=== PATIENT | male | born 1955 | race Caucasian/White ===

== ENCOUNTER 2017-02-24 14:58 | Emergency (ER) | payer BC, OTHER ==
[2017-02-24] MEDS ORDERED: Aspirin 81 MG Tab.Chew PO STA (15:22)
--- NOTE | 2017-02-24 15:28 | EDM.PDOC ---
ED HPI GENERAL MEDICAL PROBLEM - General Chief Complaint: Chest Pain Stated Complaint: CHEST PAIN Time Seen by Provider: 02/24/17 15:19 - History of Present Illness INITIAL COMMENTS - FREE TEXT/NARRATIVE: 62-year-old male presents emergency room with chest pain. Patient had significant chest discomfort on Tuesday this is over his left shoulder and radiated down to his left anterior chest. This pain was much better on Tuesday he was very active and didn't have any problems he's had intermittent twinging yesterday are usually triggered by change of position. The patient was seen by his chiropractor earlier today who recommended he come in for evaluation make sure his heart wasn't acting up. Patient has no prior history of cardiac problems he is taking atorvastatin for hyperlipidemia. The patient's mother had an MS at age 90 and his father of a malignancy. The patient does not currently smoke. The patient is not having active chest pain at this time. 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 [Unable to Verify Home Med List] 02/24/17 [History] ED ROS GENERAL - Review of Systems Review Of Systems: See Below Constitutional: Reports: No Symptoms HEENT: Reports: No Symptoms Respiratory: Reports: No Symptoms Cardiovascular: Reports: Chest Pain. Denies: Dyspnea on Exertion, Edema, Palpitations GI/Abdominal: Reports: No Symptoms : Reports: No Symptoms Musculoskeletal: Reports: Shoulder Pain, Muscle Pain Neurological: Reports: No Symptoms ED EXAM, GENERAL - Physical Exam Exam: See Below Exam Limited By: No Limitations General Appearance: Alert, No Apparent Distress Head: Atraumatic, Normocephalic Neck: Normal Inspection, Supple, Non-Tender, Full Range of Motion Respiratory/Chest: No Respiratory Distress, Lungs Clear, Normal Breath Sounds Cardiovascular: Regular Rate, Rhythm, No Edema, No Murmur GI/Abdominal: Normal Bowel Sounds, Soft, Non-Tender Back Exam: Normal Inspection. No: CVA Tenderness (L), CVA Tenderness (R) Extremities: Normal Inspection, No Pedal Edema EKG INTERPRETATION Rhythm: NSR [place]: Normal P-Wave: Present QRS: Normal ST-T: Other (Nonspecific nondiagnostic changes minimal ST elevation in lead III) QT: Normal Course - Vital Signs Last Recorded V/S: Last Vital Signs Temp 36.8 C 02/24/17 15:06 Pulse 71 02/24/17 15:06 Resp 10 L 02/24/17 15:06 BP 163/89 H 02/24/17 15:06 Pulse Ox 100 02/24/17 15:06 - Orders/Labs/Meds Orders: Active Orders 24 hr Category Date Time Status EKG Documentation Completion [RC] STAT Care 02/24/17 15:29 Active CBC WITH MANUAL DIFF [HEME] Stat Lab 02/24/17 15:10 Results Labs: Laboratory Tests 02/24/17 02/24/17 02/24/17 Range/Units 15:10 15:10 15:10 WBC 6.31 (4.23-9.07) K/mm3 RBC 5.42 (4.63-6.08) M/mm3 Hgb 15.6 (13.7-17.5) gm/L Hct 46.1 (40.1-51.0) % MCV 85.1 (79.0-92.2) fl MCH 28.8 (25.7-32.2) pg MCHC 33.8 (32.2-35.5) g/dl RDW Std Deviation 43.0 (35.1-43.9) fL Plt Count 348 H (163-337) K/mm3 MPV 9.7 (9.4-12.3) fl PT 10.7 (8.0-13.0) SECONDS INR 0.98 APTT 23 (22-36) SECONDS Sodium 143 (136-145) mEq/L Potassium 3.7 (3.5-5.1) mEq/L Chloride 105 (98-107) mEq/L Carbon Dioxide 28 (21-32) mEq/L Anion Gap 13.7 (5-15) BUN 17 (7-18) mg/dL Creatinine 1.1 (0.7-1.3) mg/dL Est Cr Clr Drug Dosing 67.84 mL/min Estimated GFR (MDRD) > 60 (>60) mL/min BUN/Creatinine Ratio 15.5 (14-18) Glucose 105 (80-115) mg/dL Calcium 9.9 (8.5-10.1) mg/dL Total Bilirubin 1.5 H (0.2-1.0) mg/dL AST 25 (15-37) U/L ALT 50 (16-63) U/L Alkaline Phosphatase 75 (46-116) U/L Troponin I < 0.017 (0.00-0.056) ng/mL Total Protein 7.9 (6.4-8.2) g/dl Albumin 4.0 (3.4-5.0) g/dl Globulin 3.9 gm/dL Albumin/Globulin Ratio 1.0 (1-2) Meds: Medications Discontinued Medications Generic Name Dose Route Start Last Admin Trade Name Freq PRN Reason Stop Dose Admin Aspirin 324 mg 02/24/17 15:22 02/24/17 15:26 Aspirin PO 02/24/17 15:23 324 mg ONETIME STA Administration - Re-Assessments/Exams Free Text/Narrative Re-Assessment/Exam: 02/24/17 16:22 Patient is done well here in the emergency room no return of his chest pain. Patient did get treated with some aspirin. His labs are negative at this point chest x-ray unrevealing EKG nondiagnostic patient agrees to an outpatient stress test. We discussed his heart score his heart score is 31 point for his hyperlipidemia one point for his age and 1 point for a moderately suspicious history. The patient would like to go home at this point after discussing the implications of the heart score and the 1.7% chance of major acute coronary event in the next 6 weeks. He agrees to follow-up for a stress test and follow- up in the clinic. Departure - Departure Time of Disposition: 16:27 Disposition: Home, Self-Care 01 Clinical Impression: Chest pain Referrals: James Celis MD [Primary Care Provider] - Forms: ED Department Discharge Additional Instructions: Return to emergency room with any questions problems or worsening symptoms. Return for your stress test as scheduled. Start baby aspirin daily. This is an 81 mg enteric-coated aspirin 1 daily. Follow-up with your regular physician 2 or 3 days after your stress test is done - My Orders Last 24 Hours: My Active Orders 02/24/17 15:10 CBC WITH MANUAL DIFF [HEME] Stat 02/24/17 15:29 EKG Documentation Completion [RC] STAT - Assessment/Plan Last 24 Hours: My Active Orders 02/24/17 15:10 CBC WITH MANUAL DIFF [HEME] Stat 02/24/17 15:29 EKG Documentation Completion [RC] STAT
--- NOTE | 2017-02-24 16:12 | CR ---
Chest: Portable view of the chest was obtained. Comparison: No previous study. Heart size is normal. Upper mediastinum is within normal limits. Lungs are clear. Bony structures are grossly intact. Impression: 1. Nothing acute is seen on portable chest x-ray. Diagnostic code #1
== END 2017-02-24 16:35 | disposition home or self-care (01) ==
LOC: JD.ED 14:58
DX: R07.9 Chest pain, unspecified (principal); E78.5 Hyperlipidemia, unspecified; Z88.0 Allergy status to penicillin
CPT/HCPCS: 36415; 71010; 80053; 84484; 85025; 85610; 85730; 93005; 99285; A9270; 93010

== ENCOUNTER 2018-09-26 20:23 | Observation (INO) | payer MEDICARE, MEDICAID ==
[2018-09-26] MEDS ORDERED: Sodium Chloride 0.9% 10 ML Syringe FLUSH PRN (20:51)
[2018-09-26] MEDS ORDERED: Lactated Ringers 1,000 ML IV SCH (21:00)
[2018-09-26] MEDS ORDERED: Iohexol 647 MG/ML 100 ML Bottle IVPUSH ONE (21:06)
--- NOTE | 2018-09-26 22:03 | EDM.PDOC ---
ED HPI GENERAL MEDICAL PROBLEM - General Chief Complaint: Upper Extremity Injury/Pain Stated Complaint: [facility] Time Seen by Provider: 09/26/18 20:28 Source of Information: Reports: Patient, EMS History Limitations: Reports: No Limitations - History of Present Illness INITIAL COMMENTS - FREE TEXT/NARRATIVE: The patient presents by [facility] for a horse accident. 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 He got him settled down and then he went down. He landed on his left side and hurt his left shoulder and upper chest. He may have been out for a short time. He has no headache now hor chest pain. He does have a deformity to the left clavicle and his upper lateral chest wall hurts. He says it hurts to take a deep breath. He has no abdominal pain, nausea, or vomiting. He has no pain in his hips, pelvis or legs. An IV was started in the ambulance and he was given fentanyl. Onset: Sudden Duration: Minutes: Location: Reports: Chest, Upper Extremity, Left (clavicle) Quality: Reports: Sharp Severity: Moderate Improves with: Reports: Immobilization Worsens with: Reports: Movement Context: Reports: Trauma (Horse fell over) Associated Symptoms: Reports: Chest Pain. 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 HELPER: Reports: Other (see below) Other Treatments STONEMASON HELPER: fentanyl Left Shoulder Pain Score (Numeric/FACES): 8 - Related Data Allergies Allergy/AdvReac Type Severity Reaction Status Date / Time Penicillins Allergy Syncope Verified 09/26/18 20:41 Past Medical History Cardiovascular History: Reports: High Cholesterol - Past Surgical History HEENT Surgical History: Reports: Tonsillectomy Other HEENT Surgeries/Procedures: nasal surgery Social & Family History - Tobacco Use Smoking Status *Q: Never Smoker - Caffeine Use Caffeine Use: Reports: Coffee - Recreational Drug Use Recreational Drug Use: No Review of Systems - Review of Systems Review Of Systems: See Below Constitutional: Reports: No Symptoms Eyes: Reports: No Symptoms Ears: Reports: No Symptoms Nose: Reports: No Symptoms Mouth/Throat: Reports: No Symptoms Respiratory: Reports: No Symptoms Cardiovascular: Reports: Chest Pain (Left upper) GI/Abdominal: Reports: No Symptoms Genitourinary: Reports: No Symptoms Musculoskeletal: Reports: Other (Left clavicle pain) ED EXAM, GENERAL - Physical Exam Exam: See Below Exam Limited By: No Limitations General Appearance: Alert, No Apparent Distress Ears: Normal External Exam Nose: Normal Inspection Head: Atraumatic, Normocephalic Neck: Normal Inspection, Supple, Non-Tender Respiratory/Chest: No Respiratory Distress, Lungs Clear, Normal Breath Sounds Cardiovascular: Regular Rate, Rhythm, No Edema, No Murmur GI/Abdominal: Soft, Non-Tender, No Organomegaly, No Mass Back Exam: Normal Inspection Extremities: Other (Pain upon palpation to the left mid clavicle with edema and a slight deformity) Course - Vital Signs Last Recorded V/S: Last Vital Signs Temp 97.7 F 09/26/18 20:29 Pulse 85 09/26/18 20:29 Resp 18 09/26/18 20:29 BP 131/77 09/26/18 20:29 Pulse Ox 92 L 09/26/18 20:29 - Orders/Labs/Meds Orders: Active Orders 24 hr Category Date Time Status Cardiac Monitoring [RC] . DIRECTED Care 09/26/18 20:51 Active Peripheral IV Care [RC] . DIRECTED Care 09/26/18 20:51 Active Cervical Spine wo Cont [CT] Stat Exams 09/26/18 20:52 Taken Chest w Cont [CT] Stat Exams 09/26/18 20:52 Taken Head wo Cont [CT] Stat Exams 09/26/18 20:51 Taken Lactated Ringers [Ringers, Lactated] 1,000 ml Med 09/26/18 21:00 Active IV ASDIRECTED Sodium Chloride 0.9% [Saline Flush] Med 09/26/18 20:51 Active 10 ml FLUSH ASDIRECTED PRN Peripheral IV Insertion Adult [OM.PC] Stat Oth 09/26/18 20:51 Ordered Medication Orders Lactated Ringer's (Ringers, Lactated) 1,000 mls @ 125 mls/hr IV ASDIRECTED LEO Last Admin: 09/26/18 21:01 Dose: 125 mls/hr Sodium Chloride (Saline Flush) 10 ml FLUSH ASDIRECTED PRN PRN Reason: Keep Vein Open Last Admin: 09/26/18 21:01 Dose: 10 ml Labs: Laboratory Tests 09/26/18 09/26/18 09/26/18 Range/Units 21:04 21:27 21:27 WBC 16.81 H (4.23-9.07) K/mm3 RBC 5.12 (4.63-6.08) M/mm3 Hgb 14.7 (13.7-17.5) gm/L Hct 44.4 (40.1-51.0) % MCV 86.7 (79.0-92.2) fl MCH 28.7 (25.7-32.2) pg MCHC 33.1 (32.2-35.5) g/dl RDW Std Deviation 43.3 (35.1-43.9) fL Plt Count 271 D (163-337) K/mm3 MPV 9.6 (9.4-12.3) fl Neut % (Auto) 82.7 H (34.0-67.9) % Lymph % (Auto) 8.7 L (21.8-53.1) % [place] % (Auto) 7.0 (5.3-12.2) % Eos % (Auto) 0.6 L (0.8-7.0) Baso % (Auto) 0.4 (0.1-1.2) % Neut # (Auto) 13.91 H (1.78-5.38) K/mm3 Lymph # (Auto) 1.47 (1.32-3.57) K/mm3 [place] # (Auto) 1.17 H (0.30-0.82) K/mm3 Eos # (Auto) 0.10 (0.04-0.54) K/mm3 Baso # (Auto) 0.06 (0.01-0.08) K/mm3 Manual Slide Review Normal smear Sodium 143 (136-145) mEq/L Potassium 4.3 (3.5-5.1) mEq/L Chloride 108 H (98-107) mEq/L Carbon Dioxide 26 (21-32) mEq/L Anion Gap 13.3 (5-15) BUN 25 H (7-18) mg/dL Creatinine 1.2 (0.7-1.3) mg/dL Est Cr Clr Drug Dosing 59.38 mL/min Estimated GFR (MDRD) > 60 (>60) mL/min BUN/Creatinine Ratio 20.8 H (14-18) Glucose 142 H (80-115) mg/dL Calcium 9.7 (8.5-10.1) mg/dL Total Bilirubin 1.2 H (0.2-1.0) mg/dL AST 34 (15-37) U/L ALT 50 (16-63) U/L Alkaline Phosphatase 66 (46-116) U/L Total Protein 7.4 (6.4-8.2) g/dl Albumin 3.9 (3.4-5.0) g/dl Globulin 3.5 gm/dL Albumin/Globulin Ratio 1.1 (1-2) Lipase 95 (73-393) U/L Urine Color Yellow (Yellow) Urine Appearance Clear (Clear) Urine pH 5.5 (5.0-8.0) Ur Specific [place] > or = 1.030 (1.005-1.030) Urine Protein 1+ H (Negative) Urine Glucose (UA) Negative (Negative) Urine Ketones Negative (Negative) Urine Occult Blood Trace-lysed H (Negative) Urine Nitrite Negative (Negative) Urine Bilirubin Negative (Negative) Urine Urobilinogen 0.2 (0.2-1.0) Ur Leukocyte Esterase Negative (Negative) Urine RBC 0-5 (0-5) /hpf Urine WBC 0-5 (0-5) /hpf Ur Epithelial Cells 0-5 (0-5) /hpf Urine Bacteria Few (FEW) /hpf Fine Granular Casts 0-5 (0-5) /lpf Urine Mucus Few (FEW) /hpf Meds: Medications Generic Name Dose Route Start Last Admin Trade Name Peeq PRN Reason Stop Dose Admin Lactated Ringer's 1,000 mls @ 125 mls/hr 09/26/18 21:00 09/26/18 21:01 Ringers, Lactated IV 125 mls/hr ASDIRECTED LEO Administration Sodium Chloride 10 ml 09/26/18 20:51 09/26/18 21:01 Saline Flush FLUSH 10 ml ASDIRECTED PRN Administration Keep Vein Open Discontinued Medications Generic Name Dose Route Start Last Admin Trade Name Freq PRN Reason Stop Dose Admin Hydromorphone HCl 0.5 mg 09/26/18 22:40 09/26/18 22:45 Dilaudid IVPUSH 09/26/18 22:41 0.5 mg ONETIME ONE Administration Iohexol 100 ml 09/26/18 21:06 09/26/18 22:07 Omnipaque-300 IVPUSH 09/26/18 21:07 100 ml ONETIME ONE Administration - Re-Assessments/Exams Free Text/Narrative Re-Assessment/Exam: 09/26/18 22:04 I ordered an IV saline lock, CT of his head, cervical spine and chest, and labs. 09/26/18 22:34 His WBC was elevated at 16.81. His CMP looks good. His UA shows no blood. The CT of his head shows nothing acute. The CT of his cervical spine shows no evidence of acute cervical injury. Nondisplaced fracture of the left posterior first rib. Mildly displaced fracture of the right posterior second rib. Nondisplaced fractures of the left T2 and T3 transverse processes. The CT of his chest shows a comminuted mid left clavicular fracture. Left 1st, 3rd, 4th, 5th and 6th rib fractures. Nondisplaced fracture of the body of the left scapula. Nondisplaced fractures of the left transverse process of T1 and T2. Scattered airspace opacities in both lower lobes dependently which could reflect atelectasis or aspiration. Subpleural soft tissue thickening adjacent to the left lateral rib fractures, which could reflect subchondral contusion versus trace hemothorax. He has more pain so I ordered dilaudid 0.5mg IV. 09/26/18 23:00 I feel he may need to be admitted. I called Dr Ortega and she agreed to the admission for observation. Departure - Departure Time of Disposition: 23:05 Disposition: Refer to Observation Condition: Fair Clinical Impression: Animal-rider injured by fall from or being thrown from horse in noncollision accident, initial encounter, Atelectasis of both lungs Concussion Qualifiers: Encounter type: initial encounter Loss of consciousness presence/duration: with LOC of 30 min or less Qualified Code(s): S06.0X1A - Concussion with loss of consciousness of 30 minutes or less, initial encounter Scapula fracture Qualifiers: Encounter type: initial encounter Scapula location: body Fracture type: closed Fracture alignment: nondisplaced Laterality: left Qualified Code(s): S42.115A - Nondisplaced fracture of body of scapula, left shoulder, initial encounter for closed fracture Clavicle fracture, shaft Qualifiers: Encounter type: initial encounter Fracture type: closed Fracture alignment: displaced Laterality: left Qualified Code(s): S42.022A - Displaced fracture of shaft of left clavicle, initial encounter for closed fracture Ribs, multiple fractures Qualifiers: Encounter type: initial encounter Fracture type: closed Laterality: left Qualified Code(s): S22.42XA - Multiple fractures of ribs, left side, initial encounter for closed fracture Chest wall contusion Qualifiers: Encounter type: initial encounter Laterality: left Qualified Code(s): S20.212A - Contusion of left front wall of thorax, initial encounter - Discharge Information Referrals: PCP,Not In Area [Primary Care Provider] - Forms: ED Department Discharge - My Orders Last 24 Hours: My Active Orders 09/26/18 20:51 Cardiac Monitoring [RC] . DIRECTED Peripheral IV Care [RC] . DIRECTED Head wo Cont [CT] Stat Sodium Chloride 0.9% [Saline Flush] 10 ml FLUSH ASDIRECTED PRN Peripheral IV Insertion Adult [OM.PC] Stat 09/26/18 20:52 Cervical Spine wo Cont [CT] Stat Chest w Cont [CT] Stat 09/26/18 21:00 Lactated Ringers [Ringers, Lactated] 1,000 ml IV ASDIRECTED - Assessment/Plan Last 24 Hours: My Active Orders 09/26/18 20:51 Cardiac Monitoring [RC] . DIRECTED Peripheral IV Care [RC] . DIRECTED Head wo Cont [CT] Stat Sodium Chloride 0.9% [Saline Flush] 10 ml FLUSH ASDIRECTED PRN Peripheral IV Insertion Adult [OM.PC] Stat 09/26/18 20:52 Cervical Spine wo Cont [CT] Stat Chest w Cont [CT] Stat 09/26/18 21:00 Lactated Ringers [Ringers, Lactated] 1,000 ml IV ASDIRECTED
[2018-09-26] MEDS ORDERED: HYDROmorphone 0.5 MG/0.5 ML Syringe IVPUSH ONE (22:40)
[2018-09-26] MEDS ORDERED: Ibuprofen 600 MG Tab PO PRN (23:54)
[2018-09-27] MEDS ORDERED: HYDROmorphone 0.5 MG/0.5 ML Syringe IVPUSH PRN (00:15)
[2018-09-27] MEDS ORDERED: Heparin Sodium 5,000 Units/ML Vial SUBCUT SCH ×2 (01:00→06:00)
[2018-09-27] MEDS ORDERED: Sodium Chloride 0.9% 10 ML Syringe FLUSH PRN (01:00)
[2018-09-27] MEDS: Acetaminophen/HYDROcodone 325-5 MG Tab PO PRN ×2 (04:00→11:27)
--- NOTE | 2018-09-27 05:45 | PCM.HP ---
H&P History of Present Illness - General Date of Service: 09/27/18 Admit Problem/Dx: Admission Diagnosis/Problem Admission Diagnosis/Problem Rib pain on left side Source of Information: Patient, Provider History Limitations: Reports: No Limitations - History of Present Illness Initial Comments - Free Text/Narative: 63 y/o male presents after falling on his horse yesterday. He reports blacking out for a short time, and then having pain in his chest with difficulty breathing. He was seen in the ED and evaluated with lab and CT tests. He was found to have multiple left rib fractures, left clavicular fracture, and left scapular fracture. He also sustained a fracture of the right second rib. He did not have any injury to the head or cervical spine. This morning he reports his pain is improved and minimal unless he tries to breath deeply or move. He also reports pain in the right thumb. He was ambulating and urinating this am, with report of clear yellow urine. Left Shoulder Pain Score (Numeric/FACES): 8 Bilateral Thoracic Pain Score (Numeric/FACES): 5 - Related Data Allergies/Adverse Reactions: Allergies Allergy/AdvReac Type Severity Reaction Status Date / Time Penicillins Allergy Syncope Verified 09/26/18 20:41 Home Medications: Home Meds atorvaSTATin [Lipitor] 10 mg PO BEDTIME 09/26/18 [History] Aspirin [[place] Aspirin EC] 81 mg PO DAILY 09/27/18 [History] Multivit-Min/FA/Lycopen/Lutein [Centrum Silver Men Tablet] PO DAILY 09/27/18 [ History] Ollie-3/DHA/Epa/Fish Oil [Fish Oil 1,000 mg Softgel] 720 mg PO DAILY 09/27/18 [ History] Past Medical History Cardiovascular History: Reports: High Cholesterol Gastrointestinal History: Reports: Hemorrhoids, PUD (gastric ulcer) Genitourinary History: Reports: None - Infectious Disease History Infectious Disease History: Reports: Chicken Pox, Shingles - Past Surgical History HEENT Surgical History: Reports: Tonsillectomy Other HEENT Surgeries/Procedures: nasal surgery Social & Family History - Family History Cardiac: Reports: Heart Failure Other Cardiac Family History: mother Neurological: Reports: CVA Other Neurological Family History: son had stroke at 20 yrs old Oncologic: Reports: Brain Other Oncologic Family History: father of brain tumor - Tobacco Use Smoking Status *Q: Never Smoker Second Hand Smoke Exposure: No - Caffeine Use Caffeine Use: Reports: Coffee, Soda, Tea - Recreational Drug Use Recreational Drug Use: No H&P Review of Systems - Review of Systems: Review Of Systems: See Below General: Reports: No Symptoms HEENT: Reports: Other (sneezing ) Pulmonary: Reports: Shortness of Breath Cardiovascular: Reports: No Symptoms Gastrointestinal: Reports: No Symptoms Genitourinary: Reports: No Symptoms Musculoskeletal: Reports: Shoulder Pain, Other (chest wall pain) Skin: Reports: No Symptoms Psychiatric: Reports: No Symptoms Neurological: Reports: No Symptoms Exam - Exam Exam: See Below - Vital Signs Vital Signs: Last Vital Signs Temp 37.3 C 09/26/18 23:15 Pulse 88 09/26/18 23:15 Resp 20 09/26/18 23:15 BP 104/67 09/26/18 23:15 Pulse Ox 95 09/26/18 23:15 Weight: 80.104 kg - Exam General: Alert, Oriented HEENT: Conjunctiva Clear, EOMI Neck: Supple Lungs: Clear to Auscultation, Normal Respiratory Effort Cardiovascular: Regular Rate, Regular Rhythm GI/Abdominal Exam: Soft, Non-Tender, No Distention, Pelvis Stable Back Exam: Normal Inspection. No: Vertebral Tenderness Extremities: Normal Inspection, No Pedal Edema, Other (right thumb without deformity) Peripheral Pulses: 2+: Dorsalis Pedis (L), Dorsalis Pedis (R) Skin: Warm, Dry, Intact Neurological: Cranial Nerves Intact Neuro Extensive - Mental Status: Alert, Oriented x3, Normal Mood/Affect - Patient Data Lab Results Last 24 hrs: Laboratory Results - last 24 hr 09/26/18 09/26/18 09/26/18 Range/Units 21:04 21:27 21:27 WBC 16.81 H (4.23-9.07) K/mm3 RBC 5.12 (4.63-6.08) M/mm3 Hgb 14.7 (13.7-17.5) gm/L Hct 44.4 (40.1-51.0) % MCV 86.7 (79.0-92.2) fl MCH 28.7 (25.7-32.2) pg MCHC 33.1 (32.2-35.5) g/dl RDW Std Deviation 43.3 (35.1-43.9) fL Plt Count 271 D (163-337) K/mm3 MPV 9.6 (9.4-12.3) fl Neut % (Auto) 82.7 H (34.0-67.9) % Lymph % (Auto) 8.7 L (21.8-53.1) % Jackson % (Auto) 7.0 (5.3-12.2) % Eos % (Auto) 0.6 L (0.8-7.0) Baso % (Auto) 0.4 (0.1-1.2) % Neut # (Auto) 13.91 H (1.78-5.38) K/mm3 Lymph # (Auto) 1.47 (1.32-3.57) K/mm3 Jackson # (Auto) 1.17 H (0.30-0.82) K/mm3 Eos # (Auto) 0.10 (0.04-0.54) K/mm3 Baso # (Auto) 0.06 (0.01-0.08) K/mm3 Manual Slide Review Normal smear Sodium 143 (136-145) mEq/L Potassium 4.3 (3.5-5.1) mEq/L Chloride 108 H (98-107) mEq/L Carbon Dioxide 26 (21-32) mEq/L Anion Gap 13.3 (5-15) BUN 25 H (7-18) mg/dL Creatinine 1.2 (0.7-1.3) mg/dL Est Cr Clr Drug Dosing 59.38 mL/min Estimated GFR (MDRD) > 60 (>60) mL/min BUN/Creatinine Ratio 20.8 H (14-18) Glucose 142 H (80-115) mg/dL Calcium 9.7 (8.5-10.1) mg/dL Total Bilirubin 1.2 H (0.2-1.0) mg/dL AST 34 (15-37) U/L ALT 50 (16-63) U/L Alkaline Phosphatase 66 (46-116) U/L Total Protein 7.4 (6.4-8.2) g/dl Albumin 3.9 (3.4-5.0) g/dl Globulin 3.5 gm/dL Albumin/Globulin Ratio 1.1 (1-2) Lipase 95 (73-393) U/L Urine Color Yellow (Yellow) Urine Appearance Clear (Clear) Urine pH 5.5 (5.0-8.0) Ur Specific [place] > or = 1.030 (1.005-1.030) Urine Protein 1+ H (Negative) Urine Glucose (UA) Negative (Negative) Urine Ketones Negative (Negative) Urine Occult Blood Trace-lysed H (Negative) Urine Nitrite Negative (Negative) Urine Bilirubin Negative (Negative) Urine Urobilinogen 0.2 (0.2-1.0) Ur Leukocyte Esterase Negative (Negative) Urine RBC 0-5 (0-5) /hpf Urine WBC 0-5 (0-5) /hpf Ur Epithelial Cells 0-5 (0-5) /hpf Urine Bacteria Few (FEW) /hpf Fine Granular Casts 0-5 (0-5) /lpf Urine Mucus Few (FEW) /hpf Result Diagrams: 09/26/18 21:27 09/26/18 21:27 *Q Meaningful Use (ADM) - VTE Risk Assess *Q Each Risk Factor Represents 1 Point: Other Risk Factor Total Score 1 Point Risk Factors: 1 Each Risk Factor Represents 2 Points: Age 60 - 74 Years Total Score 2 Point Risk Factors: 2 - Problem List (1) Animal-rider injured by fall from or being thrown from horse in noncollision accident, initial encounter SNOMED Code(s): 346260459, 653863335 ICD Code: V80.010A - ANIML-RIDR INJURED BY FALL FR HORSE IN NONCLSN ACC, INIT Status: Acute Current Visit: Yes (2) Clavicle fracture, shaft SNOMED Code(s): 05278692 ICD Code: S42.023A - DISP FX OF SHAFT OF UNSP CLAVICLE, INIT FOR CLOS FX Status: Acute Current Visit: Yes Qualifiers: Encounter type: initial encounter Fracture type: closed Fracture alignment: displaced Laterality: left Qualified Code(s): S42.022A - Displaced fracture of shaft of left clavicle, initial encounter for closed fracture (3) Ribs, multiple fractures SNOMED Code(s): 6204108 ICD Code: S22.49XA - MULTIPLE FRACTURES OF RIBS, UNSP SIDE, INIT FOR CLOS FX Status: Acute Current Visit: Yes Qualifiers: Encounter type: initial encounter Fracture type: closed Laterality: left Qualified Code(s): S22.42XA - Multiple fractures of ribs, left side, initial encounter for closed fracture (4) Scapula fracture SNOMED Code(s): 4851050 ICD Code: S42.109A - FRACTURE OF UNSP PART OF SCAPULA, UNSP SHOULDER, INIT Status: Acute Current Visit: Yes Qualifiers: Encounter type: initial encounter Scapula location: body Fracture type: closed Fracture alignment: nondisplaced Laterality: left Qualified Code(s) : S42.115A - Nondisplaced fracture of body of scapula, left shoulder, initial encounter for closed fracture Problem List Initiated/Reviewed/Updated: Yes Orders Last 24hrs: Active Orders 24 hr Category Date Time Status Patient Status [ADT] Routine ADT 09/26/18 23:04 Active Bedrest Bathroom Privileges [RC] ASDIRECTED Care 09/26/18 23:51 Active Cardiac Monitoring [RC] . DIRECTED Care 09/26/18 20:51 Active Incentive Spirometry [RT Incentive Spirometry] [RC] Care 09/26/18 23:53 Active Q2HWA Oxygen Therapy Adult [Oxygen Therapy] [RC] ASDIRECTED Care 09/26/18 23:51 Active Peripheral IV Care [RC] . DIRECTED Care 09/26/18 20:51 Active Regular Diet [DIET] Diet 09/27/18 Breakfast Active Cervical Spine wo Cont [CT] Stat Exams 09/26/18 20:52 Taken Chest 2V [CR] Routine Exams 09/27/18 05:40 Ordered Chest w Cont [CT] Stat Exams 09/26/18 20:52 Taken Head wo Cont [CT] Stat Exams 09/26/18 20:51 Taken CBC W/O DIFF,HEMOGRAM [HEME] MOTH@0700 Lab 09/28/18 07:00 Ordered CBC W/O DIFF,HEMOGRAM [HEME] MOTH@0700 Lab 10/02/18 07:00 Ordered CBC W/O DIFF,HEMOGRAM [HEME] MOTH@0700 Lab 10/05/18 07:00 Ordered CBC W/O DIFF,HEMOGRAM [HEME] MOTH@0700 Lab 10/09/18 07:00 Ordered CBC W/O DIFF,HEMOGRAM [HEME] MOTH@0700 Lab 10/12/18 07:00 Ordered CBC W/O DIFF,HEMOGRAM [HEME] MOTH@0700 Lab 10/16/18 07:00 Ordered URINALYSIS W/MICROSCOPIC [UA W/MICROSCOPIC] [URIN] Lab 09/27/18 05:41 Ordered Routine Acetaminophen/HYDROcodone [[place] 325-5 MG] Med 09/27/18 00:14 Active 2 tab PO Q6H PRN HYDROmorphone [Dilaudid] Med 09/27/18 00:15 Active 0.5 mg IVPUSH Q2H PRN Heparin Sodium Med 09/27/18 01:00 Ordered 5,000 units SUBCUT Q12H Ibuprofen [Motrin] Med 09/26/18 23:54 Active 600 mg PO Q6H PRN Lactated Ringers [Ringers, Lactated] 1,000 ml Med 09/26/18 21:00 Active IV ASDIRECTED Sodium Chloride 0.9% [Saline Flush] Med 09/26/18 20:51 Active 10 ml FLUSH ASDIRECTED PRN Sodium Chloride 0.9% [Saline Flush] Med 09/27/18 01:00 Ordered 10 ml FLUSH ASDIRECTED PRN Convert IV to Saline Lock [OM.PC] Routine Oth 09/27/18 01:00 Ordered Peripheral IV Insertion Adult [OM.PC] Stat Oth 09/26/18 20:51 Ordered Code Status [Resuscitation Status] Routine Resus Stat 09/26/18 23:49 Ordered Medication Orders Hydrocodone Bitart/Acetaminophen ([place] 325-5 Mg) 2 tab PO Q6H PRN PRN Reason: Pain (moderate 4-6) Heparin Sodium (Porcine) (Heparin Sodium) 5,000 units SUBCUT Q12H [place]O Hydromorphone HCl (Dilaudid) 0.5 mg IVPUSH Q2H PRN PRN Reason: Pain (severe 7-10) Last Admin: 09/27/18 00:49 Dose: 0.5 mg Lactated Ringer's (Ringers, Lactated) 1,000 mls @ 125 mls/hr IV ASDIRECTED LEO Last Admin: 09/26/18 21:01 Dose: 125 mls/hr Ibuprofen (Motrin) 600 mg PO Q6H PRN PRN Reason: Pain (mild 1-3) Sodium Chloride (Saline Flush) 10 ml FLUSH ASDIRECTED PRN PRN Reason: Keep Vein Open Last Admin: 09/26/18 21:01 Dose: 10 ml Sodium Chloride (Saline Flush) 10 ml FLUSH ASDIRECTED PRN PRN Reason: Keep Vein Open Assessment/Plan Comment:: 63 y/o gentleman with left scapular fracture, multiple left rib fractures, and left clavicular fracture with addition right rib fracture. - continue current pain regimen - IS with cough and deep breathing - regular diet - repeat CXR today to eval for lung contusion, hemothorax and or developing pneumothorax - repeat UA for trace blood seen at admission - Orthopedics consult for multiple fractures Possible discharge home today pending results Estefani Siddiqi MD General surgery
--- NOTE | 2018-09-27 07:15 | CT ---
CT cervical spine Technique: Multiple axial sections were obtained from above C1 inferiorly to the bottom of T2. Reconstructed sagittal and coronal images were reviewed. Comparison: No prior cervical spine imaging. Findings: Fracture is again noted within the left first rib. Nondisplaced fracture is seen within the left T2 spinous process. Slight anterior osteophytes are seen at C2-C3 and C4-C5. Vertebral body heights are maintained. No cervical spine fracture is seen. No bony central or bony neural foraminal stenosis is seen. Impression: 1. Fractures within the left first rib as well as a second transverse process. 2. Minimal degenerative change. 3. Nothing acute is seen within the cervical spine. Diagnostic code #3 I agree with preliminary report from [facility], finalized on 09/26/18, 11:13 PM Central Time
--- NOTE | 2018-09-27 08:11 | CT ---
Head CT Technique: Multiple axial sections through the brain were obtained. Intravenous contrast was not utilized. Comparison: No previous intracranial imaging is available. Findings: Ventricles along with basal cisterns and sulci over the convexities are within normal limits for the patient's age. No abnormal parenchymal densities are seen. No evidence of intracranial hemorrhage. No midline shift or mass effect is seen. Bone window settings were reviewed which shows no acute calvarial abnormality. Small radiopacities are seen anteriorly within the skin of the frontal scalp presumably due to overlying foreign bodies. Visualized sinuses are clear. Impression: 1. Small radiopacities within the frontal scalp presumably due to overlying foreign bodies. 2. No acute intracranial abnormality is seen. Diagnostic code #2 I agree with preliminary report from [facility], finalized on 09/26/18, 11:18 PM Central Time
--- NOTE | 2018-09-27 08:11 | CT ---
CT chest Technique: Multiple axial sections were obtained from above the lung apices inferiorly through the lung bases. Intravenous contrast was utilized. Comparison: Prior chest x-ray of 02/24/17. Findings: Mediastinum and hilar regions appear unremarkable. No pericardial thickening is seen. No axillary adenopathy is identified. Small cyst is noted within the right lobe of the liver measuring 7 mm. Cyst is noted within the upper left kidney measuring 5.4 cm. Increased density is noted within both lung bases and pleural thickening is seen within the left chest. Fracture is noted within the left first rib as well as comminuted fracture within the left clavicle. Fracture is noted within the left third rib as well as fourth and fifth ribs. Additional fracture is seen within the sixth rib. Minimal irregularity is seen within the right second rib which correlates to a definite fracture on subsequent chest x-ray performed one day later. No additional rib fractures are appreciated. Lateral view shows no compression deformities within the spine with slight endplate spurring being seen within the spine. Lateral reconstructed views of the sternum appear intact. Nondisplaced fractures are seen within the transverse process of T2 and T3 on the left side. Impression: 1. Rib fractures within the left first, third, fourth, fifth and sixth ribs. Adjacent pleural thickening is seen within the left chest adjacent to the rib fractures. Nondisplaced fractures within the left transverse process of T2 and T3. Right second rib fracture also noted. 2. Increased density within both lung bases. Differential includes aspiration as well as atelectasis or less likely pneumonia. 3. Other incidental findings. Diagnostic code #3 I agree with preliminary report from [facility], finalized on 09/26/18, 11:14 PM Central Time
--- NOTE | 2018-09-27 08:47 | CR ---
Left clavicle: Two views of the left clavicle were obtained. Mildly comminuted mid left clavicle fracture is seen. Major fragments show displacement by over a shaft width. Left-sided rib fractures are again seen. Impression: 1. Displacement left clavicle fracture as well as left sided rib fractures again being seen. Diagnostic code #3
--- NOTE | 2018-09-27 08:47 | CR ---
Chest: Two views of the chest were obtained. Comparison: Prior chest CT of 09/26/18. Multiple left-sided rib fractures are seen. Right second rib fracture is also noted. Left clavicle fracture is seen. Pleural thickening likely relating to the rib fractures are seen on the left side. Slight parenchymal density is seen within the left lung base most likely due to atelectasis. Heart size is normal. Mild tortuosity of the thoracic aorta is seen. Impression: 1. Bilateral rib fractures as noted above. Left clavicle fracture. 2. Pleural thickening along the left-sided rib fractures. 3. Mild left basilar atelectasis. Diagnostic code #3
[2018-09-27] MEDS ORDERED: Aspirin 81 MG Tab.EC PO SCH (09:00)
--- NOTE | 2018-09-27 11:21 | CONS ---
CONSULTING PHYSICIAN: Yovany Hebert MD DATE OF CONSULTATION: 09/27/2018 CHIEF COMPLAINT: Left shoulder pain. 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 The patient subsequently had a trauma called on him on the Emergency Department. He was found to have multiple rib fractures as well as left clavicle fracture and did have loss of consciousness and they did admit him overnight for observation as well as pain control. The patient, at this time, states he is doing well. He denies any previous pain or injury to the left upper extremity before this happened, and overall his rib fractures hurt this morning, but his left clavicle does not seem to be as bad. The patient denies any other injury at this time, and states that he otherwise is very active, but is very right-hand dominant. PHYSICAL EXAMINATION: GENERAL: Alert, in no acute distress. VITAL SIGNS: Stable, afebrile. EXTREMITIES: Examination of bilateral lower extremities. Pelvis is stable, anterior, posterior, and lateral compression. Bilateral lower extremities showed no step off. No tenderness to palpation in there. Neurovascular intact. Examination of left upper extremity, there is significant swelling noted over the left clavicle. There is no skin tenting. No blanching. He does have prominence noted to the midshaft clavicle. He is neurovascularly intact to axillary, radial, and ulnar median nerve distribution. He has no elbow tenderness. He is able to move his hand without difficulty. Right upper extremity has full range of motion. He is neurovascular intact. IMAGING DATA: Radiographs were reviewed showing a displaced left midshaft clavicle fracture with butterfly fragment. ASSESSMENT: Left midshaft clavicle fracture. PLAN: At this time, I did discuss with the patient and his significant other possible options for this, and at this time, we will plan on seeing the patient next week Tuesday. The patient will be in and on to sling as he feels like he needs it. He is to do no lifting, carrying, pushing, or pulling or shoulder height above type motion with left shoulder until that time. The patient will follow up next Tuesday with repeat radiographs in clinic, and at that time, we can decide whether he would like to pursue surgical intervention for the fracture. MMODAL /[id number]
--- NOTE | 2018-09-27 18:13 | PCM.DCSUM1 ---
Discharge Summary - Hospital Course Free Text/Narrative:: The patient was admitted after falling on his horse and sustaining multiple rib fractures and a clavicular fracture. He was kept overnight for pain control. Repeat CXR did not reveal any developing lung contusion or pneumothorax. He was seen by orthopedic surgery and arranged for follow up. He was discharged home. Diagnosis: Stroke: No Modified [place] Scale: No Signif.Disability Despite Sympt.Able to Carry Out Usual Act./Duties Modified [place] Scale Score: 1 - Discharge Data Discharge Date: 09/27/18 Discharge Disposition: Home, Self-Care 01 Condition: Good - Discharge Diagnosis/Problem(s) (1) Animal-rider injured by fall from or being thrown from horse in noncollision accident, initial encounter SNOMED Code(s): 886133959, 769150346 ICD Code: V80.010A - ANIML-RIDR INJURED BY FALL FR HORSE IN NONCLSN ACC, INIT Status: Acute (2) Clavicle fracture, shaft SNOMED Code(s): 50087811 ICD Code: S42.023A - DISP FX OF SHAFT OF UNSP CLAVICLE, INIT FOR CLOS FX Status: Acute Qualifiers: Encounter type: initial encounter Fracture type: closed Fracture alignment: displaced Laterality: left Qualified Code(s): S42.022A - Displaced fracture of shaft of left clavicle, initial encounter for closed fracture (3) Ribs, multiple fractures SNOMED Code(s): 1954401 ICD Code: S22.49XA - MULTIPLE FRACTURES OF RIBS, UNSP SIDE, INIT FOR CLOS FX Status: Acute Qualifiers: Encounter type: initial encounter Fracture type: closed Laterality: left Qualified Code(s): S22.42XA - Multiple fractures of ribs, left side, initial encounter for closed fracture (4) Scapula fracture SNOMED Code(s): 3452569 ICD Code: S42.109A - FRACTURE OF UNSP PART OF SCAPULA, UNSP SHOULDER, INIT Status: Acute Qualifiers: Encounter type: initial encounter Scapula location: body Fracture type: closed Fracture alignment: nondisplaced Laterality: left Qualified Code(s) : S42.115A - Nondisplaced fracture of body of scapula, left shoulder, initial encounter for closed fracture - Patient Instructions Diet: Usual Diet as Tolerated Activity: As Tolerated, No Lifting Over 20 Pounds, No Strenuous Activities, Rest and Relax Today Showering/Bathing: May Shower Notify Provider of: Fever, Increased Pain, Nausea and/or Vomiting - Discharge Plan *PRESCRIPTION DRUG MONITORING PROGRAM REVIEWED*: Not Applicable *COPY OF PRESCRIPTION DRUG MONITORING REPORT IN PATIENT ANN MARIE: Not Applicable Prescriptions/Med Rec: Acetaminophen/HYDROcodone [Mcbain 325-5 MG] 2 tab PO Q6H PRN 14 Days #40 tablet PRN Reason: Pain (Moderate 4-6) Docusate Sodium [Colace] 100 mg PO BID PRN 20 Days #40 cap PRN Reason: Constipation Ibuprofen [Motrin] 600 mg PO Q6H PRN 20 Days #120 tablet PRN Reason: Pain (Mild 1-3) Home Medications: Home Meds atorvaSTATin [Lipitor] 10 mg PO BEDTIME 09/26/18 [History] Acetaminophen/HYDROcodone [Mcbain 325-5 MG] 2 tab PO Q6H PRN 14 Days #40 tablet 09/27/18 [Rx] Aspirin [[place] Aspirin EC] 81 mg PO DAILY 09/27/18 [History] Docusate Sodium [Colace] 100 mg PO BID PRN 20 Days #40 cap 09/27/18 [Rx] Ibuprofen [Motrin] 600 mg PO Q6H PRN 20 Days #120 tablet 09/27/18 [Rx] Multivit-Min/FA/Lycopen/Lutein [Centrum Silver Men Tablet] 1 tab PO DAILY [History] [place]-3/DHA/Epa/Fish Oil [Fish Oil 1,000 mg Softgel] 720 mg PO DAILY 09/27/18 [ History] Patient Handouts: Clavicle Fracture, [id number], Rib Fracture Referrals: Estefani Siddiqi MD [Physician] - 10/11/18 1:00 pm (Follow up in 2 weeks.) Yovany Hebert MD [Physician] - 10/03/18 1:10 pm (Follow-up with on Tuesday as you talked about. Please come between 12:45-12:50 to fill out paperwork.) - Discharge Summary/Plan Comment DC Time >30 min.: No - Patient Data Vitals - Most Recent: Last Vital Signs Temp 36.7 C 05/29/19 08:38 Pulse 66 09/27/18 08:38 Resp 16 09/27/18 08:38 BP 115/55 L 09/27/18 08:38 Pulse Ox 95 09/27/18 08:38 Weight - Most Recent: 80.104 kg I&O - Last 24 hours: Intake & Output 09/27/18 09/27/18 09/27/18 06:59 14:59 22:59 Intake Total 500 240 Balance 500 240 Lab Results - Last 24 hrs: Laboratory Results - last 24 hr 09/26/18 09/26/18 09/26/18 Range/Units 21:04 21:27 21:27 WBC 16.81 H (4.23-9.07) K/mm3 RBC 5.12 (4.63-6.08) M/mm3 Hgb 14.7 (13.7-17.5) gm/L Hct 44.4 (40.1-51.0) % MCV 86.7 (79.0-92.2) fl MCH 28.7 (25.7-32.2) pg MCHC 33.1 (32.2-35.5) g/dl RDW Std Deviation 43.3 (35.1-43.9) fL Plt Count 271 D (163-337) K/mm3 MPV 9.6 (9.4-12.3) fl Neut % (Auto) 82.7 H (34.0-67.9) % Lymph % (Auto) 8.7 L (21.8-53.1) % [place] % (Auto) 7.0 (5.3-12.2) % Eos % (Auto) 0.6 L (0.8-7.0) Baso % (Auto) 0.4 (0.1-1.2) % Neut # (Auto) 13.91 H (1.78-5.38) K/mm3 Lymph # (Auto) 1.47 (1.32-3.57) K/mm3 [place] # (Auto) 1.17 H (0.30-0.82) K/mm3 Eos # (Auto) 0.10 (0.04-0.54) K/mm3 Baso # (Auto) 0.06 (0.01-0.08) K/mm3 Manual Slide Review Normal smear Sodium 143 (136-145) mEq/L Potassium 4.3 (3.5-5.1) mEq/L Chloride 108 H (98-107) mEq/L Carbon Dioxide 26 (21-32) mEq/L Anion Gap 13.3 (5-15) BUN 25 H (7-18) mg/dL Creatinine 1.2 (0.7-1.3) mg/dL Est Cr Clr Drug Dosing 59.38 mL/min Estimated GFR (MDRD) > 60 (>60) mL/min BUN/Creatinine Ratio 20.8 H (14-18) Glucose 142 H (80-115) mg/dL Calcium 9.7 (8.5-10.1) mg/dL Total Bilirubin 1.2 H (0.2-1.0) mg/dL AST 34 (15-37) U/L ALT 50 (16-63) U/L Alkaline Phosphatase 66 (46-116) U/L Total Protein 7.4 (6.4-8.2) g/dl Albumin 3.9 (3.4-5.0) g/dl Globulin 3.5 gm/dL Albumin/Globulin Ratio 1.1 (1-2) Lipase 95 (73-393) U/L Urine Color Yellow (Yellow) Urine Appearance Clear (Clear) Urine pH 5.5 (5.0-8.0) Ur Specific [place] > or = 1.030 (1.005-1.030) Urine Protein 1+ H (Negative) Urine Glucose (UA) Negative (Negative) Urine Ketones Negative (Negative) Urine Occult Blood Trace-lysed H (Negative) Urine Nitrite Negative (Negative) Urine Bilirubin Negative (Negative) Urine Urobilinogen 0.2 (0.2-1.0) Ur Leukocyte Esterase Negative (Negative) Urine RBC 0-5 (0-5) /hpf Urine WBC 0-5 (0-5) /hpf Ur Epithelial Cells 0-5 (0-5) /hpf Urine Bacteria Few (FEW) /hpf Hyaline Casts (0-5) /lpf Fine Granular Casts 0-5 (0-5) /lpf Urine Mucus Few (FEW) /hpf 09/27/18 Range/Units 09:50 WBC (4.23-9.07) K/mm3 RBC (4.63-6.08) M/mm3 Hgb (13.7-17.5) gm/L Hct (40.1-51.0) % MCV (79.0-92.2) fl MCH (25.7-32.2) pg MCHC (32.2-35.5) g/dl RDW Std Deviation (35.1-43.9) fL Plt Count (163-337) K/mm3 MPV (9.4-12.3) fl Neut % (Auto) (34.0-67.9) % Lymph % (Auto) (21.8-53.1) % [place] % (Auto) (5.3-12.2) % Eos % (Auto) (0.8-7.0) Baso % (Auto) (0.1-1.2) % Neut # (Auto) (1.78-5.38) K/mm3 Lymph # (Auto) (1.32-3.57) K/mm3 [place] # (Auto) (0.30-0.82) K/mm3 Eos # (Auto) (0.04-0.54) K/mm3 Baso # (Auto) (0.01-0.08) K/mm3 Manual Slide Review Sodium (136-145) mEq/L Potassium (3.5-5.1) mEq/L Chloride (98-107) mEq/L Carbon Dioxide (21-32) mEq/L Anion Gap (5-15) BUN (7-18) mg/dL Creatinine (0.7-1.3) mg/dL Est Cr Clr Drug Dosing mL/min Estimated GFR (MDRD) (>60) mL/min BUN/Creatinine Ratio (14-18) Glucose (80-115) mg/dL Calcium (8.5-10.1) mg/dL Total Bilirubin (0.2-1.0) mg/dL AST (15-37) U/L ALT (16-63) U/L Alkaline Phosphatase (46-116) U/L Total Protein (6.4-8.2) g/dl Albumin (3.4-5.0) g/dl Globulin gm/dL Albumin/Globulin Ratio (1-2) Lipase (73-393) U/L Urine Color Yellow (Yellow) Urine Appearance Slt cloudy H (Clear) Urine pH 5.5 (5.0-8.0) Ur Specific [place] > or = 1.030 (1.005-1.030) Urine Protein 1+ H (Negative) Urine Glucose (UA) Negative (Negative) Urine Ketones 1+ H (Negative) Urine Occult Blood Trace-lysed H (Negative) Urine Nitrite Negative (Negative) Urine Bilirubin Negative (Negative) Urine Urobilinogen 0.2 (0.2-1.0) Ur Leukocyte Esterase Negative (Negative) Urine RBC 0-5 (0-5) /hpf Urine WBC 0-5 (0-5) /hpf Ur Epithelial Cells 0-5 (0-5) /hpf Urine Bacteria Few (FEW) /hpf Hyaline Casts 5-10 H (0-5) /lpf Fine Granular Casts (0-5) /lpf Urine Mucus Many H (FEW) /hpf Med Orders - Current: Current Medications Discontinued Medications Hydrocodone Bitart/Acetaminophen (Mcbain 325-5 Mg) 2 tab PO Q6H PRN PRN Reason: Pain (moderate 4-6) Last Admin: 09/27/18 11:27 Dose: 2 tab Aspirin (Halfprin) 81 mg PO DAILY [facility] Last Admin: 09/27/18 08:36 Dose: 81 mg Heparin Sodium (Porcine) (Heparin Sodium) 5,000 units SUBCUT Q12H [facility] Last Admin: 09/27/18 06:36 Dose: Not Given Heparin Sodium (Porcine) (Heparin Sodium) 5,000 units SUBCUT Q12H [facility] Last Admin: 09/27/18 06:36 Dose: 5,000 units Hydromorphone HCl (Dilaudid) 0.5 mg IVPUSH ONETIME ONE Stop: 09/26/18 22:41 Last Admin: 09/26/18 22:45 Dose: 0.5 mg Hydromorphone HCl (Dilaudid) 0.5 mg IVPUSH Q2H PRN PRN Reason: Pain (severe 7-10) Last Admin: 09/27/18 00:49 Dose: 0.5 mg Lactated Ringer's (Ringers, Lactated) 1,000 mls @ 125 mls/hr IV ASDIRECTED [facility] Last Admin: 09/26/18 21:01 Dose: 125 mls/hr Ibuprofen (Motrin) 600 mg PO Q6H PRN PRN Reason: Pain (mild 1-3) Last Admin: 09/27/18 06:37 Dose: 600 mg Iohexol (Omnipaque-300) 100 ml IVPUSH ONETIME ONE Stop: 09/26/18 21:07 Last Admin: 09/26/18 22:07 Dose: 100 ml Atorvastatin 10 Mg * (*Pt Own Med) 0 each PO BEDTIME [place] Sodium Chloride (Saline Flush) 10 ml FLUSH ASDIRECTED PRN PRN Reason: Keep Vein Open Last Admin: 09/26/18 21:01 Dose: 10 ml Sodium Chloride (Saline Flush) 10 ml FLUSH ASDIRECTED PRN PRN Reason: Keep Vein Open
[2018-09-27] MEDS ORDERED: ATORVASTATIN 10 MG PO SCH (21:00)
== END 2018-09-27 13:03 | disposition home or self-care (01) ==
LOC: JD.ED 20:23 → JD.MS 23:04
PROVIDERS: ADMIT Surgery; ATTEND Surgery
DX: S22.42XA Multiple fractures of ribs, left side, initial encounter for closed fracture (principal); S22.31XA Fracture of one rib, right side, initial encounter for closed fracture; S42.022A Displaced fracture of shaft of left clavicle, initial encounter for closed fracture; S42.115A Nondisplaced fracture of body of scapula, left shoulder, initial encounter for closed fracture; E78.00 Pure hypercholesterolemia, unspecified; V80.010A Animal-rider injured by fall from or being thrown from horse in noncollision accident, initial encounter; Z88.0 Allergy status to penicillin; Z79.82 Long term (current) use of aspirin; Z79.899 Other long term (current) drug therapy
CPT/HCPCS: 36415; 70450; 71046; 71260; 72125; 73000; 80053; 81001; 83690; 85025; 99285; A9270; J1170; J1644; J7120; Q9967; 99284